=== PATIENT | female | born 1990 | race Caucasian/White ===

== ENCOUNTER 2017-09-22 15:38 | Outpatient (CLI) | payer OTHER | END 2017-09-22 20:18 | disposition home or self-care (01) | LOC: OBS/DEL 15:38 | DX: O26.892 Other specified pregnancy related conditions, second trimester (principal); Z04.3 Encounter for examination and observation following other accident; Z34.02 Encounter for supervision of normal first pregnancy, second trimester; W18.39XA Other fall on same level, initial encounter; Y93.01 Activity, walking, marching and hiking; Y92.89 Other specified places as the place of occurrence of the external cause; Y99.8 Other external cause status ==

== ENCOUNTER 2018-01-11 13:47 | Inpatient (IN) | payer OTHER ==
[~2018-01-11] VITALS: Ht 175.3 cm; Wt 3.6 kg
[2018-02-03] MEDS ORDERED: PRENATABS RX T1 EACH PO (15:13)
[2018-02-03] MEDS ORDERED: VALTREX1000 MG PO (15:14)
[2018-02-03] MEDS ORDERED: PNEU16DI2 (15:14)
== END 2018-02-07 10:48 | disposition home or self-care (01) | DRG 766 ==
LOC: OB/GYN 02-03 14:35 → LDR 02-03 14:35 → OB/GYN 02-04 20:03
PROVIDERS: Obstetrics & Gynecology
PROC: 10907ZC Drainage of Amniotic Fluid, Therapeutic from Products of Conception, Via Natural or Artificial Opening (ICD-10-PCS; 2018-02-04)
PROC: 3E0P7VZ Introduction of Hormone into Female Reproductive, Via Natural or Artificial Opening (ICD-10-PCS; 2018-02-04)
PROC: 4A1HXCZ Monitoring of Products of Conception, Cardiac Rate, External Approach (ICD-10-PCS; 2018-02-04)
PROC: 10D00Z1 Extraction of Products of Conception, Low, Open Approach (ICD-10-PCS; principal; 2018-02-04 17:00)
DX: O61.0 Failed medical induction of labor (principal); O99.02 Anemia complicating childbirth; Z3A.39 39 weeks gestation of pregnancy; Z37.0 Single live birth

== ENCOUNTER 2018-02-03 11:56 | Outpatient (CLI) | payer OTHER ==
[2018-02-03] MEDS ORDERED: PRENATABS RX T1 EACH PO (15:13)
[2018-02-03] MEDS ORDERED: PNEU16DI2 (15:14)
[2018-02-03] MEDS ORDERED: VALTREX1000 MG PO (15:14)
== END 2018-02-03 14:34 | disposition still patient (30) ==
LOC: OBS/DEL 11:56
DX: O47.1 False labor at or after 37 completed weeks of gestation (principal); Z34.03 Encounter for supervision of normal first pregnancy, third trimester